=== PATIENT | male | born 1995 ===

== ENCOUNTER 2018-09-15 11:02 | Emergency (ER) | payer OTHER ==
[2018-09-15 11:28] VITALS: RESP 18; TEMP 98.2
[2018-09-15 11:29] VITALS: BMI 25.8
--- NOTE | 2018-09-15 12:35 | ED PDOC ---
Arrival/HPI - General Chief Complaint: Abnormal Skin Integrity Time Seen by Provider: 09/15/18 11:29 Historian: Patient - History of Present Illness Narrative History of Present Illness (Text): 09/15/18 12:30 A 23 year old male, with no significant past medical history, presents to the emergency department complaining of cut to right 1st digit. Patient reports he cut his finger with metal while at work. Patient denies any numbn ess/tingling/weakness to right 5th digit, or any other physical complaints at this time. No PMD Past Medical History - Provider Review Nursing Documentation Reviewed: Yes - Psychiatric Hx Substance Use: No - Surgical History Hx Orthopedic Surgery: Yes (bilateral knees) Family/Social History - Physician Review Nursing Documentation Reviewed: Yes Family/Social History: No Known Family HX Smoking Status: Unknown If Ever Smoked Hx Alcohol Use: Yes Frequency of alcohol use: Socially Hx Substance Use: No Allergies/Home Meds Allergies/Adverse Reactions: Allergies No Known Allergies Allergy (Verified 09/15/18 11:28) Home Medications: Home Meds Medication Instructions Recorded Confirmed No Known Home Med 09/15/18 09/15/18 Review of Systems - Physician Review All systems were reviewed & negative as marked: Yes - Review of Systems Skin: Laceration (right hand 5th digit) Neurological: absent: Other (no numbness/tingling/weakness to the right 5th digit.) Physical Exam Vital Signs Reviewed: Yes Vital Signs Temp Pulse Resp BP Pulse Ox 09/15/18 11:28 98.2 F 82 18 142/81 100 Temperature: Afebrile Blood Pressure: Normal Pulse: Regular Respiratory Rate: Normal Appearance: Positive for: Well-Appearing, Non-Toxic, Comfortable Pain Distress: None Mental Status: Positive for: Alert and Oriented X 3 - Systems Exam Upper Extremity: Present: Normal Inspection, Normal ROM (full ROM to right hand 5th digit.). No: Cyanosis, Edema Neurological: Present: GCS=15, CN II-XII Intact, Speech Normal Skin: Present: Laceration (1 cm laceration to the dorsal aspect of the right hand 5th digit.). No: Rashes Psychiatric: Present: Alert, Oriented x 3, Normal Insight, Normal Concentration Medical Decision Making ED Course and Treatment: 09/15/18 12:32 Impression: 23 year old male with right hand 5th digit laceration. Physical exam shows 1 cm laceration to right hand 5th digit to dorsal aspect, no numbness/tingling/weakness to area. Plan: -- Dermabond - laceration repair -- Reassess and disposition Progress Notes: Patient tolerated the procedure well. Clean dressing applied/ Advised to follow up with primary care physician or workman's comp in 1-2 days without fail. Return to the emergency room at any time for any new or worsening symptoms. Patient states he fully agrees with and understands discharge instructions. States that he agrees with the plan and disposition. Verbalized and repeated discharge instructions and plan. I have given the patient opportunity to ask any additional questions. Procedure: Wound Repair - Time Performed Time Performed: 12:30 - Time Out Time Out: Side verified, Site verified, Patient ID confirmed, Sterile procedures obs. - Consent Obtained Consent obtained: Verbal - Performed by Performed by: Mid-level Provider - Indications Indication(s):: Laceration - Location Finger:: Right, Thumb Shape:: Linear Dimensions Length cm: 1 cm Depth:: Epidermis - Debris Debris:: None - Irrigated Irrigated with ml of normal saline: 50 - Complexity Complexity:: Simple (one layer) - Wound repair method [place]:: Tissue glue - Patient tolerated procedure Patient Tolerated Procedure:: Well - PA / SUPERVISOR LAUNDRY / Resident Statement MD/DO has reviewed & agrees with the documentation as recorded. - Scribe Statement The provider has reviewed the documentation as recorded by the [place] Provider Scribe Attestation: All medical record entries made by the Scribe were at my direction and personally dictated by me. I have reviewed the chart and agree that the record accurately reflects my personal performance of the history, physical exam, medical decision making, and the department course for this patient. I have also personally directed, reviewed, and agree with the discharge instructions and disposition. Disposition/Present on Arrival - Present on Arrival Any Indicators Present on Arrival: No History of DVT/PE: No History of Uncontrolled Diabetes: No Urinary Catheter: No History of Decub. Ulcer: No History Surgical Site Infection Following: None - Disposition Have Diagnosis and Disposition been Completed?: Yes Diagnosis: Thumb laceration Disposition: HOME/ ROUTINE Disposition Time: 12:30 Patient Plan: Discharge Condition: STABLE Discharge Instructions (ExitCare): Laceration Repair With Glue (DC), Wound Care (DC) Additional Instructions: Thank you for letting us take care of you today. You were treated for R thumb laceration. The emergency medical care you received today was directed at your acute symptoms. Keep dry and covered. It may take several days for your symptoms to resolve. Return to the Emergency Department if your symptoms worsen, do not improve, or if you have any other problems. Please contact your doctor in 2 days for re-evaluation and follow up / or call one of the physicians/clinics you have been referred to that are listed on the Patient Visit Information form that is included in your discharge packet. Bring any paperwork you were given at discharge with you along with any medications you are taking to your follow up visit. Our treatment cannot replace ongoing medical care by a primary care provider (PCP) outside of the emergency department. Thank you for allowing the [facility] team to be part of your care today. Referrals: Nico Kelley MD [Staff Provider] - Follow up with primary FAMILY PROVIDER,NO [Primary Care Provider] - Follow up with primary Forms: [employer] ([place]), WORK NOTE
[2018-09-16 00:12] VITALS: BP 132/79; PULSE 76; O2SAT 99
== END 2018-09-15 12:52 | disposition home or self-care (01) ==
LOC: ED 11:02
DX: S61.011A Laceration without foreign body of right thumb without damage to nail, initial encounter (principal); W26.8XXA Contact with other sharp object(s), not elsewhere classified, initial encounter; Y92.89 Other specified places as the place of occurrence of the external cause; Y99.0 Civilian activity done for income or pay